=== PATIENT | female | born 1975 | race Caucasian/White ===

== ENCOUNTER 2018-08-17 20:11 | Inpatient (IN) | payer OTHER ==
[~2018-08-17] VITALS: Ht 162.6 cm; Wt 89.4 kg
[2018-08-17 20:22] VITALS: Ht 162.6 cm; Wt 89.4 kg
[2018-08-17 21:12] LABS: CALCIUM 9.2 mg/dL (8.5-10.1); CARBON DIOXIDE 25.8 mmol/L (21-32); CHLORIDE SERUM 100 mmol/L (98-107); CREATININE SERUM 0.9 mg/dL (0.6-1.0); GFR1 > 60 mL/min; GLUCOSE SERUM 101 mg/dL (74-106); POTASSIUM SERUM 3.7 mmol/L (3.5-5.1); SODIUM SERUM 136 mmol/L (136-145)
[2018-08-17 21:14] LABS: BASOPHIL % 0.8 % (0-2); PLATELET COUNT 314 x10^3mcL (130-400); RED CELL DISTRIBUTION WIDTH 11.9 % (11.5-14.5)
[2018-08-17 21:15] LABS: UA SPECIFIC GRAVITY 1.025 (1.005-1.035); microscopic required? YES; urine erythrocyte NEGATIVE (NEGATIVE)
[2018-08-17 21:27] LABS: FREE T4 0.96 ng/dL (0.76-1.46)
[2018-08-17 21:35] LABS: AMPHETAMINE QUAL UR NONE DETECTED (See below)
[2018-08-17] MEDS ORDERED: BENAZEPRIL HYDR40 M1 PO (23:23)
[2018-08-17] MEDS ORDERED: RIZATRIPTAN BEN10 M1 PO (23:24)
[2018-08-17] MEDS ORDERED: IMITREX100 MG PO (23:25)
[2018-08-18 01:19] VITALS: BP 148/95
[2018-08-18 05:01] VITALS: BP 134/89
[2018-08-18 06:34] LABS: BASOPHIL % 0.4 % (0-2); PLATELET COUNT 327 x10^3mcL (130-400); RED CELL DISTRIBUTION WIDTH 12.3 % (11.5-14.5)
[2018-08-18 06:49] LABS: ALBUMIN 3.7 g/dL (3.4-5.0); ALKALINE PHOSPHATASE 64 U/L (46-116); ALT/SGPT 16 U/L (14-59); AST/SGOT 14 U/L (15-37); BILIRUBIN TOTAL 0.5 mg/dL (0.20-1.00); CARBON DIOXIDE 23.1 mmol/L (21-32); CHLORIDE SERUM 103 mmol/L (98-107); CREATININE SERUM 0.7 mg/dL (0.6-1.0); GFR1 > 60 mL/min; GLUCOSE SERUM 121 mg/dL (74-106); POTASSIUM SERUM 3.9 mmol/L (3.5-5.1); SODIUM SERUM 138 mmol/L (136-145); TOTAL PROTEIN, SERUM 7.4 g/dL (6.4-8.2)
[2018-08-18 09:40] VITALS: BP 132/89
[2018-08-18 17:37] VITALS: BP 129/74
[2018-08-18 21:05] VITALS: BP 147/63
[2018-08-18 22:15] VITALS: BP 132/64
[2018-08-19 05:07] VITALS: BP 112/75
[2018-08-19 08:30] VITALS: BP 129/80
[2018-08-19 10:17] VITALS: BP 129/80
[2018-08-19 10:24] VITALS: BP 129/80
== END 2018-08-19 10:52 | disposition home or self-care (01) | DRG 690 ==
LOC: ED 20:11 → DU 23:49
PROVIDERS: Emergency Medicine; Internal Medicine Pulmonary Disease
DX: N39.0 Urinary tract infection, site not specified (principal); R55 Syncope and collapse; I10 Essential (primary) hypertension
CPT/HCPCS: 84439; 97530-GP; J0696; J1885; J2060; J2405; J2550; J7030; J7042; J8597; Q0092; Q0162